=== PATIENT | female | born 1990 | race Two or more races ===

== ENCOUNTER 2018-03-21 13:19 | Emergency (ER) | payer MEDICAID ==
[2016-02-07 15:58] VITALS: Wt 144.7 kg
[~2018-03-21 13:19] MED LIST: AMOX-559 PO; AMOX500T10 PO; DOCU240C67 PO; FERR-53 PO; IBUP800T37 PO; IRON150C19 PO; Lanolin TP; OXYC-373 PO; OXYC-865 PO; PER PO; PNV1TABL77 PO; PREN-119 PO; SULF-198 PO
--- NOTE | 2018-03-21 13:25 | ER Report ---
History and Physical Time Seen By MD: 13:25 HPI/ROS CHIEF COMPLAINT: Knee pain HISTORY OF PRESENT ILLNESS: This is a 27-year-old female who presents to the emergency department for knee pain. Patient states that yesterday she developed some left knee pain, no trauma to the knee however it does feel like it's "popping". It also feels as if it's on steady and unable to maintain her weight. Patient denies previous injuries to the knee, patient denies aches, chills, nausea, vomiting. No fevers or rashes. Patient does state however that proximal Y2 days ago she was playing basketball with her kids and unsure if she may have hyperextended her left knee. REVIEW OF SYSTEMS: Respiratory: No cough, no dyspnea. Cardiovascular: No chest pain, no palpitations. Gastrointestinal: No vomiting, no abdominal pain. Musculoskeletal: As above. Allergies: Coded Allergies: No Known Drug Allergies (Unverified , 08/12/16) Home Meds Active Scripts Ibuprofen (IBUPROFEN) 800 Mg Tablet, 1 TAB PO Q8H, #12 TAB 0 Refills Prov:RACHEL BOURNE [facility]- 03/21/18 Cyclobenzaprine Hcl (CYCLOBENZAPRINE HCL) 10 Mg Tablet, 5-10 MG PO TID Y for MUSCLE SPASMS, #9 TAB Prov:RACHEL BOURNE [facility]- 03/21/18 Sulfamethoxazole/Trimet 800-160 Mg Tab (BACTRIM DS TABLET) 1 Each Tablet, 1 TAB PO Q12H, #20 TAB 0 Refills Prov:YULI RUSH APRN [employer]ATOR-C 08/12/16 Past Medical/Surgical History Patient has a past medical and surgical history of abscesses, cholecystectomy, obesity. Reviewed Nurses Notes: Yes Hx Smoking: Yes Smoking Status: Current: Some Days Smoker Exposure to Second Hand Smoke?: Yes Constitutional Vital Sign - Last 24 Hours 03/21/18 13:28 Temp 96.3 Pulse 103 Resp 19 B/P (MAP) 162/110 Pulse Ox 95 O2 Delivery Room Air Physical Exam General Appearance: The patient is alert, has no immediate need for airway protection and no current signs of toxicity, tearful. Eyes: Pupils equal and round no injection. Respiratory: Chest is non tender, lungs are clear to auscultation. Cardiac: regular rate and rhythm. Gastrointestinal: Abdomen is soft and non tender, no masses, bowel sounds normal. Musculoskeletal: Neck: Neck is supple and non tender. Extremities left lateral patellar knee pain, negative valgus and varus. Negative posterior and anterior drawer. Very minimal amount of swelling to the lateral knee. No erythema, no posterior knee or calf pain. Skin: No rashes or lesions. DIFFERENTIAL DIAGNOSIS: After history and physical exam differential diagnosis was considered for patellar dislocation, gout, septic joint, patellar tendinitis , anterior cruciate ligament, PCL injury and contusion. Medical Decision Making EKG/Imaging Imaging Location: [facility] [place] Patient: Ivanna Jenkins : 1990 Visit/Account:[id number] Date of Sevice: 03/21/2018 Left knee Indication: Left knee pain x2 days. No known injury. Comparison: None available Findings: 4 views left knee were obtained. No evidence of fracture, dislocation, or acute osseous abnormality of the left knee. Mild medial tibiofemoral compartment joint space loss. Remaining joint spaces are maintained. Mild tricompartmental osteophytosis. No evidence of joint effusion. There is no focal soft tissue abnormality. No evidence of radiopaque foreign body. IMPRESSION: 1.No acute osseous abnormality of the left knee. 2. Mild degenerative changes within the knee. Report Dictated By: Toni Capps MD at 03/21/2018 2:28 PM Report E-Signed By: Toni Capps MD at 03/21/2018 2:30 PM WSN:[email or web address] ED Course/Re-evaluation ED Course The patient was admitted to a room. A history and physical were obtained. Differential diagnoses were considered. An x-ray of the left knee was negative for any acute osseous abnormalities. I did review these results with the patient. I did tell her I do not have any clear explanation as to why she has the pain did tell her that it could be a patellar tendinitis however I would like for her to follow-up with [facility] for reevaluation. I did place her in a knee immobilizer provided her with crutches as well as prescription strength ibuprofen and cyclobenzaprine. Patient had no other questions or concerns at this time and was discharged home. Patient does understand that she needs to return to emergency department for any other concerns can certainly do so. Decision to Disposition Date: Mar 21, 2018 Decision to Disposition Time: 14:58 Depart Departure Latest Vital Signs Vital Signs Date Time Temp Pulse Resp B/P (MAP) Pulse Ox O2 Delivery O2 Flow Rate FiO2 03/21/18 13:28 96.3 103 19 162/110 95 Room Air Impression: Primary Impression: Left knee pain Condition: Improved Disposition: HOME OR SELF-CARE Referrals: [facility] 1 Week New Scripts Ibuprofen (IBUPROFEN) 800 Mg Tablet 1 TAB PO Q8H, #12 TAB 0 Refills Prov: RACHEL BOURNEP-BC 03/21/18 Cyclobenzaprine Hcl (CYCLOBENZAPRINE HCL) 10 Mg Tablet 5-10 MG PO TID Y for MUSCLE SPASMS, #9 TAB Prov: RACHEL BOURNE- 03/21/18 Patient Instructions: Knee Pain (ED) Additional Instructions: Drink plenty of fluids. Get plenty of rest. Take the medications as directed. Return to the ED for any other concerns. Follow up with [facility] within one week. Problem Qualifiers Primary Impression: Left knee pain Chronicity: acute Qualified Codes: M25.562 - Pain in left knee RACHEL BOURNEP- Mar 21, 2018 13:25
[2018-03-21 13:28] VITALS: BP 162/110
[2018-03-21] MEDS ORDERED: ORPHENADRINE 60MG/2ML INJ IM ONE (13:30)
[2018-03-21] MEDS ORDERED: ORPHENADRINE 60MG/2ML INJ ONE (13:46)
--- NOTE | 2018-03-21 14:34 | RADIOLOGY IMAGING REPORT ---
FACILITY: [facility] - [place] PATIENT NAME: Ivanna Jenkins : 1990 MR: [id number] V: [id number] EXAM DATE: ORDERING PHYSICIAN: RACHEL BOURNE TECHNOLOGIST: Location: [facility] - [place] Patient: Ivanna Jenkins : 1990 Visit/Account:[id number] Date of Sevice: 03/21/2018 Left knee Indication: Left knee pain x2 days. No known injury. Comparison: None available Findings: 4 views left knee were obtained. No evidence of fracture, dislocation, or acute osseous abnormality of the left knee. Mild medial tibiofemoral compartment joint space loss. Remaining joint spaces are maintained. Mild tricompartmental osteophytosis. No evidence of joint effusion. There is no focal soft tissue abnormality. No evidence of radiopaque foreign body. IMPRESSION: 1.No acute osseous abnormality of the left knee. 2. Mild degenerative changes within the knee. Report Dictated By: Toni Capps MD at 03/21/2018 2:28 PM Report E-Signed By: Toni Capps MD at 03/21/2018 2:30 PM WSN:[email or web address]
[2018-03-21] MEDS ORDERED: IBUP800T37 PO (15:01)
[2018-03-21] MEDS ORDERED: CYCL10TA29 PO (15:01)
== END 2018-03-21 15:15 | disposition home or self-care (01) ==
LOC: ER 13:37
DX: M25.562 Pain in left knee (principal)
CPT/HCPCS: 73564; 99283; J2360; L1830

== ENCOUNTER 2018-04-29 09:42 | Emergency (ER) | payer MEDICAID ==
[2016-02-07 15:58] VITALS: Wt 156.9 kg
[~2018-04-29 09:42] MED LIST changes: +CYCL10TA29 PO
--- NOTE | 2018-04-29 10:37 | ER Report ---
History and Physical Time Seen By MD: 10:00 Hx. of Stated Complaint: pt has swelling/redness r ring finger at nail HPI/ROS CHIEF COMPLAINT: infection HISTORY OF PRESENT ILLNESS: pt presents with complaint of swelling to r 4th finger, has been ongoing x 3 d, worsening, no drainage. no injury REVIEW OF SYSTEMS: Constitutional: No fever, no chills. Eyes: No discharge. Cardiovascular: No chest pain, no palpitations. Respiratory: No cough, no shortness of breath. Gastrointestinal: No abdominal pain, no vomiting. Musculoskeletal: no other pain Skin: pain not spreading proxmially Neurological: No headache. Allergies: Coded Allergies: No Known Drug Allergies (Unverified , 04/29/18) Home Meds Active Scripts Ibuprofen (IBUPROFEN) 600 Mg Tablet, 1 TAB PO Q6H for 7 Days, #30 TAB Prov:LIVE STONE MD 04/29/18 Mupirocin Calcium (BACTROBAN) 15 Gm Cream..g., 1 INCH TP TID for 7 Days, #1 TUBE Prov:LIVE STONE MD 04/29/18 Hydrocodone Bit/Acetaminophen (NORCO 5-325 TABLET) 1 Each Tablet, 1 EACH PO Q6H Y for pain for 5 Days, #10 TAB Prov:LIVE STONE MD 04/29/18 Cephalexin (KEFLEX) 250 Mg Capsule, 250 MG PO Q6H for 7 Days, #28 CAP Prov:LIVE STONE MD 04/29/18 Discontinued Scripts Ibuprofen (IBUPROFEN) 800 Mg Tablet, 1 TAB PO Q8H, #12 TAB 0 Refills Prov:RACHEL BOURNEP-BC 03/21/18 Cyclobenzaprine Hcl (CYCLOBENZAPRINE HCL) 10 Mg Tablet, 5-10 MG PO TID Y for MUSCLE SPASMS, #9 TAB Prov:RACHEL BOURNEP-BC 03/21/18 Sulfamethoxazole/Trimet 800-160 Mg Tab (BACTRIM DS TABLET) 1 Each Tablet, 1 TAB PO Q12H, #20 TAB 0 Refills Prov:YULI RUSH APRNP-C 08/12/16 Hx Smoking: Yes Smoking Status: Current: Some Days Smoker Exposure to Second Hand Smoke?: Yes Hx Substance Use Disorder: No Hx Alcohol Use: No Constitutional Vital Sign - Last 24 Hours 04/29/18 04/29/18 09:46 10:55 Temp 97.9 Pulse 83 83 Resp 16 16 B/P (MAP) 135/78 137/84 (101) Pulse Ox 93 95 O2 Delivery Room Air Physical Exam General Appearance: [The patient is alert, has no immediate need for airway protection and no signs of toxicity.] [ ] Eyes: Pupils equal and round no pallor or injection. ENT, Mouth: Mucous membranes are moist. Respiratory: There are no retractions, lungs are clear to auscultation. Cardiovascular: Regular rate and rhythm. [ ] Gastrointestinal: Abdomen is soft and non tender, no masses, bowel sounds normal. Neurological: [ ] Skin: Warm and dry, no rashes. Musculoskeletal: Neck is supple non tender. Extremities are nontender, nonswollen and have full range of motion. r 4th finger swelling medial aspect of nail c/w paronychia, extending to base of nail. + fluctuance, no drainge [DIFFERENTIAL DIAGNOSIS: After history and physical exam differential diagnosis was considered for paronychia, fb, fracture Medical Decision Making ED Course/Re-evaluation ED Course After r/b I i/d'd paronychia; sm amt purulent drainge returned along with sanguinous oozing. Bacitracin/bandage placed Of note, pt was in mod amount of pain as lidocaine wore out. Adminstiered med in ed. Re-evaluation pain improved though continued discomfort after norco/ibuprofen in ED. I offered further supportive care due to pain and throbbing from paronychia and post procedure. Pt ultimately tolerated pain relief and will d/c with further supportive tx for 48 hours. Pt understands strict rtn precautions. Procedure Incision and drainage; indication; paronychia consent verbal sterile prep 3ml 2% lido adminsitered 11 blade scalpel 3mL of purulent/serosanguinous drainge pt tolerated well though with increased pain as lidocaine wore off Decision to Disposition Date: Apr 29, 2018 Decision to Disposition Time: 10:46 Depart Departure Latest Vital Signs Vital Signs Date Time Temp Pulse Resp B/P (MAP) Pulse Ox O2 Delivery O2 Flow Rate FiO2 04/29/18 10:55 83 16 137/84 (101) 95 04/29/18 09:46 97.9 Room Air Impression: Primary Impression: Paronychia of finger Condition: Improved Disposition: HOME OR SELF-CARE New Scripts Ibuprofen (IBUPROFEN) 600 Mg Tablet 1 TAB PO Q6H for 7 Days, #30 TAB Prov: LIVE STONE MD 04/29/18 Mupirocin Calcium (BACTROBAN) 15 Gm Cream..g. 1 INCH TP TID for 7 Days, #1 TUBE Prov: LIVE STONE MD 04/29/18 Hydrocodone Bit/Acetaminophen (NORCO 5-325 TABLET) 1 Each Tablet 1 EACH PO Q6H Y for pain for 5 Days, #10 TAB Prov: LIVE STONE MD 04/29/18 Cephalexin (KEFLEX) 250 Mg Capsule 250 MG PO Q6H for 7 Days, #28 CAP Prov: LIVE STONE MD 04/29/18 Patient Instructions: Incision and Drainage (ED), Paronychia (ED) Problem Qualifiers Primary Impression: Paronychia of finger Laterality: right Qualified Codes: L03.011 - Cellulitis of right finger LIVE STONE MD Apr 29, 2018 10:37
[2018-04-29] MEDS ORDERED: APAP/HYDROCODONE 325/10 TAB PO ONE (10:40)
[2018-04-29] MEDS ORDERED: IBUPROFEN 600 MG TAB PO ONE (10:40)
[2018-04-29] MEDS ORDERED: HYDR-4309 PO (10:43)
[2018-04-29] MEDS ORDERED: CEPH250C37 PO (10:43)
[2018-04-29] MEDS ORDERED: MUPI15CR10 TP (10:45)
[2018-04-29] MEDS ORDERED: IBUP600T22 PO (10:45)
[2018-04-29 10:55] VITALS: BP 137/84
== END 2018-04-29 10:59 | disposition home or self-care (01) ==
LOC: ER 09:55
DX: L03.011 Cellulitis of right finger (principal)
CPT/HCPCS: 26010; 99283

== ENCOUNTER 2018-09-13 14:39 | Emergency (ER) | payer SELFPAY ==
[2016-02-07 15:58] VITALS: Wt 148.3 kg
[~2018-09-13 14:39] MED LIST changes: +CEPH250C37 PO; +HYDR-653 PO; +IBUP600T22 PO; +MUPI15CR10 TP
--- NOTE | 2018-09-13 14:40 | ER Report ---
History and Physical Time Seen By MD: 14:40 HPI/ROS CHIEF COMPLAINT: Sore throat HISTORY OF PRESENT ILLNESS: Patient is a 27-year-old female who presents to the emergency department complaining of sore throat for the past few days. She reports occasional cough and mild nausea but no vomiting. She denies any headache. She denies neck stiffness. No known ill contacts at home although the patient does have 4 children. Patient denies any other significant past medical history. She denies any chest pain or shortness of breath. She denies abdominal pain. She denies she denies breast-feeding REVIEW OF SYSTEMS: ENT: Sore throat Respiratory: No cough, no dyspnea. Cardiovascular: No chest pain, no palpitations. Gastrointestinal: No vomiting, no abdominal pain. Musculoskeletal: No back pain. Allergies: Coded Allergies: No Known Drug Allergies (Unverified , 04/29/18) Home Meds Active Scripts Prednisone (PREDNISONE) 20 Mg Tablet, 20 MG PO QDAY, #5 TAB 0 Refills Prov:LIVE GAITAN MD 09/13/18 Benzonatate 100 Mg Cap (TESSALON PERLE 100 MG CAP) 100 Mg Capsule, 100 MG PO TID for cough, #15 CAP 0 Refills Prov:LIVE GAITAN MD 09/13/18 Amoxicillin 500 Mg Tab (AMOXICILLIN 500 MG TAB) 500 Mg Tablet, 2 TAB PO Q12H, #28 TAB 0 Refills TAKE TWO TABLETS BY MOUTH EVERY 12 HOURS Prov:LIVE GAITAN MD 09/13/18 Discontinued Scripts Ibuprofen (IBUPROFEN) 600 Mg Tablet, 1 TAB PO Q6H for 7 Days, #30 TAB Prov:LIVE STONE MD 04/29/18 Mupirocin Calcium (BACTROBAN) 15 Gm Cream..g., 1 INCH TP TID for 7 Days, #1 TUBE Prov:LIVE STONE MD 04/29/18 Hydrocodone Bit/Acetaminophen (NORCO 5-325 TABLET) 1 Each Tablet, 1 EACH PO Q6H PRN for pain for 5 Days, #10 TAB Prov:LIVE STONE MD 04/29/18 Cephalexin (KEFLEX) 250 Mg Capsule, 250 MG PO Q6H for 7 Days, #28 CAP Prov:LIVE STONE MD 04/29/18 Past Medical/Surgical History Noncontributory towards this chief complaint Hx Smoking: Yes Smoking Status: Current: Some Days Smoker Exposure to Second Hand Smoke?: Yes Hx Substance Use Disorder: No Hx Alcohol Use: No Constitutional Vital Sign - Last 24 Hours 09/13/18 09/13/18 14:42 15:00 Temp 97.7 Pulse 105 Resp 16 B/P (MAP) 159/90 137/78 (97) Pulse Ox 92 O2 Delivery Room Air Physical Exam General Appearance: Alert, no distress. Eyes: Pupils equal and round no pallor or injection. ENT, Mouth: Ears: Tympanic membranes are normal. Nose: No bleeding. Mouth: Mucous membranes are moist. Throat: Swollen erythematous tonsils without exudate, positive palatal petechiae. Musculoskeletal: Neck is supple non tender, no adenopathy. Skin: Warm and dry, no rashes. Medical Decision Making ED Course/Re-evaluation ED Course 09/13/2018 2:54:14 pm patient with clinical group A strep pharyngitis. I will treat with antibiotics. Decision to Disposition Date: Sep 13, 2018 Decision to Disposition Time: 14:54 Depart Departure Latest Vital Signs Vital Signs Date Time Temp Pulse Resp B/P (MAP) Pulse Ox O2 Delivery O2 Flow Rate FiO2 09/13/18 15:00 137/78 (97) 09/13/18 14:42 97.7 105 16 92 Room Air Impression: Primary Impression: Strep pharyngitis Condition: Improved Disposition: HOME OR SELF-CARE New Scripts Prednisone (PREDNISONE) 20 Mg Tablet 20 MG PO QDAY, #5 TAB 0 Refills Prov: LIVE GAIATN MD 09/13/18 Benzonatate 100 Mg Cap (TESSALON PERLE 100 MG CAP) 100 Mg Capsule 100 MG PO TID for cough, #15 CAP 0 Refills Prov: LIVE GAITAN MD 09/13/18 Amoxicillin 500 Mg Tab (AMOXICILLIN 500 MG TAB) 500 Mg Tablet 2 TAB PO Q12H, #28 TAB 0 Refills TAKE TWO TABLETS BY MOUTH EVERY 12 HOURS Prov: LIVE GAITAN MD 09/13/18 Patient Instructions: Pharyngitis (ED) LIVE GAITAN MD Sep 13, 2018 14:40
[2018-09-13] MEDS ORDERED: PRED20TA6 PO (14:56)
[2018-09-13] MEDS ORDERED: BENZ100C4 PO (14:56)
[2018-09-13] MEDS ORDERED: AMOX500T10 PO (14:56)
[2018-09-13 15:00] VITALS: BP 137/78
== END 2018-09-13 15:08 | disposition home or self-care (01) ==
LOC: ER 14:48
DX: J02.0 Streptococcal pharyngitis (principal)
CPT/HCPCS: 99281

== ENCOUNTER 2019-01-30 16:59 | Emergency (ER) | payer SELFPAY ==
[2016-02-07 15:58] VITALS: Wt 163.3 kg
[~2019-01-30 16:59] MED LIST changes: +BENZ100C4 PO; +PRED20TA6 PO
[2019-01-30 17:30] VITALS: BP 164/94
--- NOTE | 2019-01-30 17:39 | ER Report ---
History and Physical Time Seen By MD: 17:15 Hx. of Stated Complaint: PT HAVING LEFT LOWER AND RIGHT UPPER QUADRANT MUSCLE PAIN, THINKS IT IS FROM COUGHING. ALSO HAS ABCESS TO RIGHT BREAT HPI/ROS CHIEF COMPLAINT: Abdominal cramping HISTORY OF PRESENT ILLNESS: 28-year-old female with morbid obesity presents with chief complaint of abdominal cramping. This is been ongoing for 4 months. This occurs intermittently. Patient states she especially notes it when she coughs, bends over, strains. Cramping occurs in multiple places in the abdomen but especially lower abdomen. Patient does note that she feels a bulge when this happens. Sometimes she has her push it or punch it back into place. She presents because just before arrival, she was sitting car and starting to get out of the car when she noticed the lower abdominal cramping, bulging. She states this brought her to tears and it was so severe she did not think she could breathe. Therefore she presented to the ED. At this point, symptoms are much improved that she is lying in gurney. She has not had vomiting, fever, change in stools, chest pain, shortness of breath. REVIEW OF SYSTEMS: Constitutional: No fever, no chills. Eyes: No discharge. ENT: No sore throat. Cardiovascular: No chest pain, no palpitations. Respiratory: No cough, no shortness of breath. Gastrointestinal: above Genitourinary: no dysuria Musculoskeletal: No back pain. Skin: No rashes. Neurological: No headache. Remainder of the 14 system rev: Yes Allergies: Coded Allergies: No Known Drug Allergies (Unverified , 04/29/18) Home Meds Active Scripts Prednisone (PREDNISONE) 20 Mg Tablet, 20 MG PO QDAY, #5 TAB 0 Refills Prov:LIVE GAITAN MD 09/13/18 Benzonatate 100 Mg Cap (TESSALON PERLE 100 MG CAP) 100 Mg Capsule, 100 MG PO TID for cough, #15 CAP 0 Refills Prov:LIVE GAITAN MD 09/13/18 Amoxicillin 500 Mg Tab (AMOXICILLIN 500 MG TAB) 500 Mg Tablet, 2 TAB PO Q12H, #28 TAB 0 Refills TAKE TWO TABLETS BY MOUTH EVERY 12 HOURS Prov:LIVE GAITAN MD 09/13/18 Reviewed Nurses Notes: Yes Hx Smoking: Yes Smoking Status: Current: Some Days Smoker Exposure to Second Hand Smoke?: Yes Hx Substance Use Disorder: No Hx Alcohol Use: No Constitutional Vital Sign - Last 24 Hours 01/30/19 17:12 Temp 98.9 Pulse 96 Resp 18 B/P (MAP) 150/110 Pulse Ox 90 Physical Exam General Appearance: The patient is alert, has no immediate need for airway protection and no signs of toxicity. Eyes: Pupils equal and round no pallor or injection. ENT, Mouth: Mucous membranes are moist. Respiratory: There are no retractions, lungs are clear to auscultation. Cardiovascular: Regular rate and rhythm. no m/r/g Gastrointestinal: abdomen distended secondary to morbid obesity. Pt has no ttp to deep palpation; she has multiple apparant abd wall defects with hernia palpable when she strains, but easily reducible. No femoral/inguinal hernias. Neurological: alert, moves all ext Skin: Pt has multiple scars c/w healed abscesses. She has actively draining abscess r chest wall without surrounding erythema Musculoskeletal: Extremities are nontender, nonswollen and have full range of motion. DIFFERENTIAL DIAGNOSIS: After history and physical exam differential diagnosis was considered for hernia, incarcerated hernia, intra-abdominal pathology, or other emergent etiology of symptoms. Medical Decision Making ED Course/Re-evaluation ED Course 28 f presents with abd pain; findings c/w abd wall defects c/w hernia; pt does not have incarcerated hernia or sgs of complications. I considered need for labs/imaging to r/o other etiologies of pain, but upon hx and exam, her symptoms are very c/w abd wall pathology. We discussed at length need ot establish f/u care; I will offer outpt evaluation with general surgery for discussion of tx options, and pt understands that wt loss will be of significant benefit. She undertsands SRP's. Decision to Disposition Date: Jan 30, 2019 Decision to Disposition Time: 17:35 Depart Departure Latest Vital Signs Vital Signs Date Time Temp Pulse Resp B/P (MAP) Pulse Ox O2 Delivery O2 Flow Rate FiO2 01/30/19 17:12 98.9 96 18 150/110 90 Impression: Primary Impression: Abdominal wall hernia Condition: Improved Disposition: HOME OR SELF-CARE Referrals: [facility] 1 Week Patient Instructions: Ventral Hernia (ED) Additional Instructions: As we discussed, I recommend surgery f/u for further evaluation and repair options v discussion of surgical wt loss options. Please return immediately if you have painful bulge/cramp and cannot reduce it once you lie down and breathe slowly, for vomiting, fever, or any concerns. LIVE STONE MD Jan 30, 2019 17:39
== END 2019-01-30 17:45 | disposition home or self-care (01) ==
LOC: ER 17:17
DX: K43.9 Ventral hernia without obstruction or gangrene (principal)
CPT/HCPCS: 99282

== ENCOUNTER → 2019-04-14 | Outpatient (REF) ==
[2016-02-07 15:58] VITALS: BMI 48.5
--- NOTE | 2019-04-14 10:17 | RADIOLOGY IMAGING REPORT ---
FACILITY: [facility] - [place] PATIENT NAME: Ivanna Jenkins : 1990 MR: [id number] V: [id number] EXAM DATE: ORDERING PHYSICIAN: WILBER URENA TECHNOLOGIST: Location: [facility] Patient: Ivanna Jenkins : 1990 Visit/Account:[id number] Date of Sevice: 04/14/2019 EXAMINATION: Abdominal ultrasound complete HISTORY: Palpable lumps in the right upper quadrant left upper quadrant and left lower quadrant COMPARISON: None. FINDINGS: Numerous images of the intra-abdominal wall were obtained in the right upper quadrant, left upper lindsay drant left lower quadrant. The images were obtained both with and without Valsalva maneuver. No tonya dence of a ventral hernia or superficial abdominal mass was demonstrated IMPRESSION: Unremarkable sonographic evaluation of the intra-abdominal wall as described above Report Dictated By: Kamini Santos MD at 04/14/2019 10:06 AM Report E-Signed By: Kamini Santos MD at 04/14/2019 10:10 AM WSN:[email or web address]
== END ==
LOC: US 00:57
PROVIDERS: ATTEND Internal Medicine
DX: R10.9 Unspecified abdominal pain (principal)
CPT/HCPCS: 76700

== ENCOUNTER 2019-04-18 21:04 | Emergency (ER) | payer SELFPAY ==
[2016-02-07 15:58] VITALS: Wt 168.7 kg
--- NOTE | 2019-04-18 21:15 | ER Report ---
History and Physical Time Seen By MD: 21:13 Hx. of Stated Complaint: PATIENT REPORTS RED, SWOLLEN AREA TO TAILBONE THAT SHE FIRST NOTICED LAST NIGHT HPI/ROS CHIEF COMPLAINT: Tailbone swelling, pain, redness HISTORY OF PRESENT ILLNESS: This is a 28-year-old female. In the upper part of her tailbone/gluteal fold area having some redness and pain. Started yesterday evening. Has had abscesses drained in various areas in the past and this is what she is worried about. No fevers or chills. Allergies: Coded Allergies: No Known Drug Allergies (Unverified , 04/18/19) Home Meds Active Scripts Sulfamethoxazole/Trimet 800-160 Mg Tab (BACTRIM DS TABLET) 1 Each Tablet, 1 TAB PO Q12H, #14 TAB 0 Refills Prov:JOVON GERBER MD 04/18/19 Discontinued Scripts Prednisone (PREDNISONE) 20 Mg Tablet, 20 MG PO QDAY, #5 TAB 0 Refills Prov:LIVE GAITAN MD 09/13/18 Benzonatate 100 Mg Cap (TESSALON PERLE 100 MG CAP) 100 Mg Capsule, 100 MG PO TID for cough, #15 CAP 0 Refills Prov:LIVE GAITAN MD 09/13/18 Amoxicillin 500 Mg Tab (AMOXICILLIN 500 MG TAB) 500 Mg Tablet, 2 TAB PO Q12H, #28 TAB 0 Refills TAKE TWO TABLETS BY MOUTH EVERY 12 HOURS Prov:LIVE GAITAN MD 09/13/18 Reviewed Nurses Notes: Yes Hx Smoking: Yes Smoking Status: Current: Some Days Smoker Exposure to Second Hand Smoke?: Yes Hx Substance Use Disorder: No Hx Alcohol Use: No Constitutional Vital Sign - Last 24 Hours 04/18/19 21:09 Temp 98.3 Pulse 108 Resp 20 Pulse Ox 90 Physical Exam Skin: Tailbone area and upper gluteal fold have diffuse redness and induration but I do not feel any fluctuance. Got a bedside ultrasound which shows no fluid pocket that significant induration. Medical Decision Making ED Course/Re-evaluation ED Course Appears to be an early cellulitis but no abscess yet. Started on Bactrim DS. Recommended hot compresses as well. Follow-up needed to make sure that if there is no abscess that is drained. Recommended this in about 3-5 days Decision to Disposition Date: Apr 18, 2019 Decision to Disposition Time: 21:35 Depart Departure Latest Vital Signs Vital Signs Date Time Temp Pulse Resp B/P (MAP) Pulse Ox O2 Delivery O2 Flow Rate FiO2 04/18/19 21:09 98.3 108 20 90 Impression: Primary Impression: Cellulitis Condition: Improved Disposition: HOME OR SELF-CARE New Scripts Sulfamethoxazole/Trimet 800-160 Mg Tab (BACTRIM DS TABLET) 1 Each Tablet 1 TAB PO Q12H, #14 TAB 0 Refills Prov: JOVON GERBER MD 04/18/19 Patient Instructions: Cellulitis (ED) Additional Instructions: You have a skin infection, but no sign of abscess yet. Start the antibiotic Bactrim DS twice a day for 7 days. Within the next 3-4 days, this should either resolve, or form an abscess. If you have an abscess, then it will need to either drain on it's own or we will need to drain it. If not getting better, please see your regular doctor or return here for re- evaluation. Ibuprofen 200mg over the counter tablets, take 4 tablets every 8 hours for pain. Use hot compresses every hour for about 15-20 minutes while awake. Problem Qualifiers Primary Impression: Cellulitis Site of cellulitis: buttock Qualified Codes: L03.317 - Cellulitis of buttock JOVON GERBER MD Apr 18, 2019 21:15
[2019-04-18] MEDS ORDERED: SULF-198 PO (21:39)
[2019-04-18] MEDS ORDERED: TRIMETH/SULFA DS 160-800MG TAB PO ONE (21:40)
== END 2019-04-18 21:45 | disposition home or self-care (01) ==
LOC: ER 21:10
DX: L03.312 Cellulitis of back [any part except buttock and flank] (principal)
CPT/HCPCS: 99282